=== PATIENT | male | born 1995 | race African-American/Black ===

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

== ENCOUNTER 2019-03-31 21:46 | Emergency (ER) | payer OTHER ==
[2019-03-31 22:01] VITALS: BP 139/80
--- NOTE | 2019-03-31 22:25 | UC ---
General HPI - HPI Summary HPI Summary: 23-year-old male comes in with a chief complaint of racing heart shortness breath feeling anxious. Patient is a [employer] student and his last final for the semester is tomorrow. He's been having some episodes where he feels short of breath. Shortness breath will come at various times then he gets better. Patient is not short of breath at this time. No chest pain. Patient also had an episode where his heart was racing. That also improved. Patient also discuss that he has decreased appetite and hasn't been sleeping much. Denies feeling depressed. Denies suicidal ideation or any thoughts of hurting himself. Patient is going back home to [place] tomorrow after his final. - History of Current Complaint Chief Complaint: UCGeneralIllness Stated Complaint: BREATHING ISSUES Time Seen by Provider: 03/31/19 22:05 Pain Intensity: 0 - Allergy/Home Medications Allergies/Adverse Reactions: Allergies Allergy/AdvReac Type Severity Reaction Status Date / Time No Known Allergies Allergy Verified 03/31/19 22:01 Home Medications: Home Medications NK [No Home Medications Reported] 03/31/19 [History Confirmed 03/31/19] PMH/Surg Hx/FS Hx/Imm Hx Previously Healthy: Yes - Surgical History Surgical History: None Surgery Procedure, Year, and Place: DENIES - Family History Known Family History: Positive: None - Social History Alcohol Use: Occasionally Substance Use Type: Marijuana Substance Use Comment - Amount & Last Used: occasionally Smoking Status (MU): Never Smoked Tobacco Type: eCigarettes Amount Used/How Often: 10 Review of Systems All Other Systems Reviewed And Are Negative: Yes Constitutional: Positive: Other - SEE HPI Skin: Positive: Negative Eyes: Positive: Negative ENT: Positive: Negative Respiratory: Positive: Shortness Of Breath, Other - SEE HPI Cardiovascular: Positive: Palpitations - SEE HPI Gastrointestinal: Positive: Other - SEE HPI Motor: Positive: Negative Neurovascular: Positive: Negative Musculoskeletal: Positive: Negative Neurological: Positive: Negative Psychological: Positive: Other - SEE HPI Is Patient Immunocompromised?: No Physical Exam Triage Information Reviewed: Yes Appearance: Well-Appearing, No Pain Distress, Well-Nourished Vital Signs: Initial Vital Signs Temp 98.6 F 03/31/19 21:55 Pulse 95 03/31/19 21:55 Resp 16 03/31/19 21:55 BP 139/80 03/31/19 21:55 Pulse Ox 100 03/31/19 21:55 Vital Signs Reviewed: Yes Eye Exam: Normal Eyes: Positive: Conjunctiva Clear Neck: Positive: Supple Respiratory: Positive: Lungs clear, Normal breath sounds, No respiratory distress Cardiovascular: Positive: RRR Musculoskeletal: Positive: Strength Intact, ROM Intact Neurological: Positive: Alert, Muscle Tone Normal Psychological: Positive: Age Appropriate Behavior Skin Exam: Normal Course/Dx - Course Course Of Treatment: We discussed getting a chest x-ray, and EKG, and lab work to include blood work to check for thyroid. At this time the patient declines. He reports that he feels better being able to talk to somebody about a pressure of finals at school. Denies any suicidal ideation or thoughts about hurting himself or depression. Patient feels like he has studied adequately for his final tomorrow. He's planning to go back home to [place] after the final. We discussed rest and regular exercise and following up with his doctor if not completely improved. Also discussed that if he gets racing heart or feeling short of breath he should get evaluated right away. - Diagnoses Provider Diagnosis: Palpitations, Shortness of breath Discharge ED - Sign-Out/Discharge Documenting (check all that apply): Patient Departure All imaging exams completed and their final reports reviewed: No Studies - Discharge Plan Condition: Stable Disposition: HOME Patient Education Materials: Heart Palpitations (ED), Shortness of Breath (ED) Referrals: [facility] [Provider Group] [facility] [place] [facility] REFERRAL [Outside] Additional Instructions: FOLLOW UP WITH YOUR DOCTOR IF NOT COMPLETELY IMPROVED. GET REEVALUATED SOONER IF NOT IMPROVED OR WORSE OR ANY QUESTIONS OR CONCERNS. - Billing Disposition and Condition Condition: STABLE Disposition: Home
== END 2019-03-31 22:31 | disposition home or self-care (01) ==
LOC: UCEAST 21:46
DX: R00.2 Palpitations (principal); R06.02 Shortness of breath
CPT/HCPCS: 99211; G0463